=== PATIENT | male | born 1950 | race Caucasian/White ===

== ENCOUNTER 2018-03-11 07:36 | Outpatient (CLI) | payer SELFPAY | END 2018-03-11 23:59 | disposition home or self-care (01) | LOC: HW VAS 07:36 | DX: Z00.00 Encounter for general adult medical examination without abnormal findings (principal) ==

== ENCOUNTER 2022-01-18 07:19 | Outpatient (CLI) | payer SELFPAY | END 2022-01-18 23:59 | disposition home or self-care (01) | LOC: VAS 07:19 | DX: Z13.6 Encounter for screening for cardiovascular disorders (principal) ==